=== PATIENT | male | born 1960 | race Hispanic/Latino ===

== ENCOUNTER 2021-05-12 12:26 | Outpatient (CLI) | payer BC ==
[~2021-05-12 12:26] MED LIST: Iopamidol 370 76% 100 ML VIAL ONE
== END 2021-05-12 12:27 | disposition home or self-care (01) ==
LOC: BICCT 12:26
PROVIDERS: ATTEND Specialist
DX: R22.1 Localized swelling, mass and lump, neck (principal); E01.0 Iodine-deficiency related diffuse (endemic) goiter
CPT/HCPCS: 70491; 82565; Q9967